=== PATIENT | male | born 1965 | race Two or more races ===

== ENCOUNTER 2020-10-06 17:43 | Emergency (ER) | payer OTHER ==
[~2020-10-06] VITALS: Ht 165.1 cm; Wt 81.6 kg
[2020-10-06] MEDS ORDERED: LIPITOR40 M1 PO (18:25)
[2020-10-06] MEDS ORDERED: TOPROL XL50 M1 PO (18:26)
[2020-10-06] MEDS ORDERED: LIPOFEN150 MG PO (18:26)
[2020-10-06] MEDS ORDERED: TRIJARDY XR 5-1 EACH PO (18:27)
[2020-10-06] MEDS ORDERED: NORFLEX100MG PO (22:35)
== END 2020-10-06 22:43 | disposition home or self-care (01) ==
LOC: ER 17:43
DX: K57.30 Diverticulosis of large intestine without perforation or abscess without bleeding (principal); M54.5 Low back pain

== ENCOUNTER → 2024-02-13 | Emergency (ER) | payer OTHER ==
[~2024-02-13] VITALS: Ht 152.4 cm; Wt 79.4 kg
[~2024-02-13] MED LIST: GUAIFEN/DEXTROMETHORPHAN/PE 10 ML BLIST.PACK PO ONE; LIPITOR40 M1 PO; LIPOFEN150 MG PO; NORFLEX100MG PO; TOPROL XL50 M1 PO; TRIJARDY XR 5-1 EACH PO
[2024-02-13 14:15] LABS: HEMATOCRIT 43.2 % (39.0-48.0); MEAN CORPUSCULAR HEMOGLOBIN 35.3 pg (27.00-32.0); MEAN CORPUSCULAR HGB CONC 35.7 g/dl (32.0-36.0); PLATELET COUNT 234 K/uL (150-450); RED BLOOD COUNT 4.36 M/uL (4.00-6.00); RED CELL DISTRIBUTION WIDTH 12.7 % (11.5-14.5)
[2024-02-13 14:22] LABS: HEMOGLOBIN 15.4 g/dL (13-16.00)
== END | disposition home or self-care (01) ==
LOC: ER 10:56
PROVIDERS: General Practice
DX: B34.9 Viral infection, unspecified (principal); R05.9 Cough, unspecified; I10 Essential (primary) hypertension; E11.9 Type 2 diabetes mellitus without complications; Z79.84 Long term (current) use of oral hypoglycemic drugs